=== PATIENT | male | born 1965 | race Caucasian/White ===

== ENCOUNTER 2018-11-22 21:58 | Emergency (ER) | payer MEDICAID, OTHER ==
[2018-11-22 22:05] VITALS: RESP 20; TEMP 98.1
[2018-11-22] MEDS ORDERED: DIPH,PERTUS(ACELL)TETVAC-LF 0.5 ML VIAL IM ONE (22:36)
[2018-11-22] MEDS ORDERED: LIDOCAINE 1% INJ 10MG/ML (20 ML MDV) SQ STA (22:36)
[2018-11-22 22:40] VITALS: BP 124/72
--- NOTE | 2018-11-22 22:53 | XR ---
EXAM: XR Left Hand Complete, 3 or More Views CLINICAL HISTORY: ITS.REASON XR Reason: Pain TECHNIQUE: Frontal, lateral and oblique views of the left hand. COMPARISON: None FINDINGS: Bones/joints: Displaced, comminuted fractures of the distal tuft of the left fifth distal phalanx. Degenerative changes of the left first MCP joint. Nonspecific small well-circumscribed lucent lesion in the lateral aspect of the base of the left fourth middle phalanx. Degenerative changes of the left first CMC joint. Soft tissues: Laceration and soft tissue swelling involving the left fifth digit. IMPRESSION: Displaced, comminuted fractures of the distal tuft of the left fifth distal phalanx. Laceration and soft tissue swelling involving the left fifth digit.
[2018-11-23] MEDS ORDERED: ceFAZolin 1,000 MG VIAL IM STA (00:17)
--- NOTE | 2018-11-23 01:29 | ED ---
General Adult HPI - General Source: patient, RN notes reviewed, old records reviewed Mode of arrival: ambulatory Limitations: no limitations <Raphael Rivera - Last Filed: 11/23/18 01:45> <Kali Tejeda - Last Filed: 11/28/18 21:18> - General Chief complaint: Wound/Laceration Stated complaint: lt hand injury Time Seen by Provider: 11/22/18 22:19 - History of Present Illness Initial comments: 53-year-old male patient past history of hypertension presents to ED with injury to left hand. Patient states that he was operating a chainsaw when the chainsaw slipped causing a laceration to his left hand. Patient has long irregular laceration stemming from the distal aspect of the fifth digit on the left hand to the mid hand region. Laceration both on dorsal and palmar aspect. Full active range of motion of all digits. Patient denies any other injury. Patient does not know date of last tetanus. Patient denies any other injury. Systemic: Pt denies fatigue, myalgia, fever/chills, rash. Pt denies weakness, night sweats, weight loss. Neuro: Pt denies headache, visual disturbances, syncope or pre-syncope. HEENT: Pt denies ocular discharge or irritation, otalgia, rhinorrhea, pharyngitis or notable lymphadenopathy. Cardiopulmonary: Pt denies chest pain, SOB, heart palpitations, dyspnea on exertion. Abdominal/GI: Pt denies abdominal pain, n/v/d. : Pt denies dysuria, burning w/ urination, frequency/urgency. Denies new onset urinary or bowel incontinence. MSK: Pt denies myalgia, loss of strength or function in extremities. Neuro: Pt denies new onset weakness, paresthesias. (Raphael Rivera) - Related Data Home Medications Medication Instructions Recorded Confirmed Fenofibrate [Lofibra] 160 mg PO DAILY 11/22/18 11/22/18 Lisinopril 40 mg PO DAILY 11/22/18 11/22/18 Simvastatin [Zocor] 40 mg PO DAILY 11/22/18 11/22/18 Previous Rx's Medication Instructions Recorded Cephalexin [Keflex] 500 mg PO Q6HR 7 Days #28 cap 11/23/18 Allergies Allergy/AdvReac Type Severity Reaction Status Date / Time No Known Allergies Allergy Verified 11/22/18 22:21 Review of Systems ROS Other: All systems not noted in ROS Statement are negative. <Raphael Rivera - Last Filed: 11/23/18 01:45> ROS Other: All systems not noted in ROS Statement are negative. <Kali Tejeda - Last Filed: 11/28/18 21:18> ROS Statement: Those systems with pertinent positive or pertinent negative responses have been documented in the HPI. Past Medical History Past Medical History: Hypertension History of Any Multi-Drug Resistant Organisms: None Reported Past Surgical History: Hernia Repair Past Psychological History: No Psychological Hx Reported Smoking Status: Current every day smoker Past Alcohol Use History: Occasional Past Drug Use History: None Reported <Raphael Rivera - Last Filed: 11/23/18 01:45> General Exam Limitations: no limitations <Raphael Rivera - Last Filed: 11/23/18 01:45> - General Exam Comments Initial Comments: Constitutional: NAD, AOX3, Pt has pleasant affect. HEENT: NC/AT, trachea midline, neck supple, no lymphadenopathy. Posterior pharynx non erythematous, without exudates. External ears appear normal, without discharge. Mucous membranes moist. Eyes PERRLA, EOM intact. There is no scleral icterus. No pallor noted. Cardiopulmonary: RRR, no murmurs, rubs or gallops, no JVD noted. Lungs CTAB in anterior and posterior rosa. No peripheral edema. Abdominal exam: Abdomen soft and non-distended. Abdomen non-tender to palpation in all 4 quadrants. Bowel sounds active in LLQ. No hepatosplenomegaly. No ecchymosis Neuro: CN II-XII grossly intact. No nuchal rigidity. MSK: 11 cm irregular laceration stemming from the distal aspect of the fifth digit on the left hand to the mid hand region. Laceration both on dorsal and palmar aspect. Full active range of motion of all digits. 1 cm of nail involvement on lateral aspect. Wound vigorously irrigated with 2 L normal saline. Flexion extension intact at all digits, PIP joint and MCP joint DIP joint. Flexion extension rotation intact at thumb. Wound approximated with 31 simple interrupted sutures. Capillary refill less than 2 seconds. Sensation intact in all digits. Wound explored extensively no ligamentous bony involvement, no foreign body. No posterior calf tenderness bilaterally, homans sign negative bilaterally. Posterior tibialis and radial pulse +2 bilaterally. Sensation intact in upper and lower extremities. Full active ROM in upper and lower extremities, 5/5 stregnth. (Raphael Rivera) Course Vital Signs 11/22/18 11/22/18 11/23/18 22:01 22:15 01:40 Temperature 98.1 F Pulse Rate 107 H 84 Respiratory 20 Rate Blood Pressure 147/102 124/72 O2 Sat by Pulse 98 Oximetry Procedures - Laceration Laceration #1 Consent Obtained: verbal consent Indication: laceration Site: other (5th digit L hand ) Size (cm): 11 Description: stellate, irregular Depth: simple, single layer Anesthetic Used: lidocaine 1% Anesthesia Technique: local infiltration, nerve block Amount (mls): 10 Pre-repair: wound explored, irrigated extensively (2L NS ), deep structures intact (no osseous, ligamentous or tendinous involvement. No foreign body ) Type of Sutures: nylon Size of Sutures: 5-0 Number of Sutures: 31 Technique: simple, interrupted Patient Tolerated Procedure: well, no complications <Raphael Rivera - Last Filed: 11/23/18 01:45> Medical Decision Making <Raphael Rivera - Last Filed: 11/23/18 01:45> <Kali Tejeda - Last Filed: 11/28/18 21:18> - Medical Decision Making 53-year-old male patient past history of hypertension presents to ED with injury to left hand. Patient states that he was operating a chainsaw when the chainsaw slipped causing a laceration to his left hand. Patient has long irregular laceration stemming from the distal aspect of the fifth digit on the left hand to the mid hand region. Laceration both on dorsal and palmar aspect. Full active range of motion of all digits. Patient denies any other injury. Patient does not know date of last tetanus. Patient denies any other injury. Physical exam displayed: 11 cm irregular laceration stemming from the distal aspect of the fifth digit on the left hand to the mid hand region. Laceration both on dorsal and palmar aspect. Full active range of motion of all digits. 1 cm of nail involvement on lateral aspect. Wound vigorously irrigated with 2 L normal saline. Flexion extension intact at all digits, PIP joint and MCP joint DIP joint. Flexion extension rotation intact at thumb. Wound approximated with 31 simple interrupted sutures. Capillary refill less than 2 seconds. Sensation intact in all digits. Wound explored extensively no ligamentous bony involvement, no foreign body. Plain film of hand displayed displaced comminuted fracture of the distal tuft of the left fifth distal phalanx. Patient placed in straight finger splint. Patient administered 1 g Ancef and ED. Patient will be discharged with Keflex. Patient tetanus updated. Patient will follow up with hand surgeon tomorrow. Patient will monitor for signs and symptoms of infection. Patient return to ER if condition worsens in any way. Case discussed and pt seen by Dr. Fajardo. (Raphael Rivera) I saw this patient in conjunction with the physician insurance underwriting assistant. I performed independent history and physical exam. Agree with case management. (Kali Tejeda) Disposition Is patient prescribed a controlled substance at d/c from ED?: No <Raphael Rivera - Last Filed: 11/23/18 01:45> <Kali Tejeda - Last Filed: 11/28/18 21:18> Clinical Impression: Laceration Disposition: HOME SELF-CARE Condition: Stable Instructions (If sedation given, give patient instructions): Laceration (ED) Additional Instructions: Patient to adhere to previously discussed treatment plan and will take medication(s) as directed. Patient to follow up with PCP in 1-2 days. Patient to return to ED if symptoms do not improve. Follow-up with hand surgeon tomorrow. Take antibiotics as directed. Please return for suture removal: Hand: 7-10 days Face: 5 days Chest/abdomen: 12-14 days Extremities: 7-10 days Scalp: 7 days Eyebrow: 5-7 days Foot/sole: 12-14 days Please monitor for signs and symptoms of infection including: redness, warmth, d rainage, discharge. Please return to ED if these signs or symptoms occur, new signs or symptoms develop or if condition worsens in anyway. Prescriptions: Cephalexin [Keflex] 500 mg PO Q6HR 7 Days #28 cap Referrals: Nonstaff,Physician [Primary Care Provider] - 1-2 days Ehsan Ochoa DO [Medical Doctor] - 1-2 days
[2018-11-23 01:41] VITALS: PULSE 84
== END 2018-11-23 01:41 | disposition home or self-care (01) ==
LOC: EC 21:58
DX: S61.317A Laceration without foreign body of left little finger with damage to nail, initial encounter (principal); Z23 Encounter for immunization; I10 Essential (primary) hypertension; F17.200 Nicotine dependence, unspecified, uncomplicated; Z79.899 Other long term (current) drug therapy; W31.2XXA Contact with powered woodworking and forming machines, initial encounter
CPT/HCPCS: 73130; 90715; 99283; 12004; 90471; 96372; J0690; J2001